=== PATIENT | male | born 1975 | race Caucasian/White ===

== ENCOUNTER 2020-05-10 11:50 | Emergency (ER) | payer OTHER ==
[~2020-05-10 11:50] MED LIST: ATARAX25 MG PO; KETOROLAC TROME10 MG PO; MEDROL 4MG DOSEP4 MG PO; ROBAXIN750 MG PO
[2020-05-10 14:50] LABS: BASOPHIL 0.7 % (0-2); EOSINOPHIL 1.8 % (0-5); HCT 44.8 % (42.0-52.0); HGB 14.4 g/dl (13.2-18.0); LYMPHOCYTE 28.8 % (15-48); MCH 29.8 pg (25.0-31.0); MCHC 32.1 g/dL (32.0-36.0); MCV 92.6 fL (78.0-100.0); MONOCYTE 8.7 % (0-12); MPV 9.6 fL (6.0-9.5); NEUTROPHIL 59.7 % (41-80); NRBC 0; PLT 238 K/uL (150-400); RBC 4.84 M/uL (4.70-6.00); RDW 13.4 % (11.5-14.0); WBC 7.4 K/uL (4.0-10.5)
[2020-05-10 16:03] LABS: BUN/CREAT RATIO (CALC) 15.2 RATIO; CREATININE 0.99 mg/dL (0.67-1.17); POTASSIUM 3.5 mmol/L (3.5-5.1)
[2020-05-10] MEDS ORDERED: MEDROL 4MG DOSEP4 MG PO (17:08)
== END 2020-05-10 17:15 | disposition home or self-care (01) ==
LOC: FER 11:50
PROVIDERS: Nurse Practitioner Family
DX: R20.2 Paresthesia of skin (principal); R29.700 NIHSS score 0
CPT/HCPCS: 36415; 70450; 71045; 80048; 84484; 85025; 93005

== ENCOUNTER 2021-03-22 22:07 | Emergency (ER) | payer OTHER ==
[2021-03-22 23:34] LABS: BASOPHIL 0.3 % (0-2); EOSINOPHIL 0.8 % (0-5); HCT 42.4 % (42.0-52.0); HGB 14.2 g/dl (13.2-18.0); LYMPHOCYTE 10.4 % (15-48); MCH 30.5 pg (25.0-31.0); MCHC 33.5 g/dL (32.0-36.0); MONOCYTE 10.5 % (0-12); MPV 9.5 fL (6.0-9.5); NEUTROPHIL 77.7 % (41-80); NRBC 0; PLT 232 K/uL (150-400); RBC 4.66 M/uL (4.70-6.00); RDW 12.8 % (11.5-14.0); WBC 9.9 K/uL (4.0-10.5)
[2021-03-22 23:50] LABS: ALBUMIN 4.2 g/dL (3.4-5.0); BILIRUBIN - TOTAL 0.4 mg/dL (0.2-1.0); BUN/CREAT RATIO (CALC) 17.5 RATIO; CREATININE 1.14 mg/dL (0.67-1.17); GLOBULIN (CALCULATION) 3.4 g/dL; TOTAL PROTEIN 7.6 g/dL (6.4-8.2)
[2021-03-23] MEDS ORDERED: CYCLOBENZAPRINE10 MG PO (00:47)
[2021-03-23] MEDS ORDERED: MEDROL 4MG DOSEP4 MG PO (00:47)
[2021-03-23] MEDS ORDERED: NORCO 5-325 TA1 EACH PO (00:47)
[2021-03-23 00:54] LABS: BILIRUBIN NEGATIVE (NEGATIVE); BLOOD TRACE-INTACT Ery/uL (NEGATIVE); CLARITY CLEAR (CLEAR); COLOR YELLOW (YELLOW); GLUCOSE (U) NORMAL (NORMAL); LEUKOCYTES NEGATIVE Leu/uL (NEGATIVE); NITRITE NEGATIVE (NEGATIVE); PROTEIN NEGATIVE (NEGATIVE); SPECIFIC GRAVITY >=1.030 (1.001-1.030); UROBILINOGEN 0.2 mg/dL (0.2-1.0)
[2021-03-23 00:58] LABS: SQUAMOUS EPITHELIAL CELLS RARE; URINARY RBC RARE; URINARY WBC RARE
== END 2021-03-23 00:59 | disposition home or self-care (01) ==
LOC: FER 22:07
PROVIDERS: Internal Medicine
DX: M54.41 Lumbago with sciatica, right side (principal); Z88.6 Allergy status to analgesic agent
CPT/HCPCS: 36415; 72128; 72131; 80053; 81001; 83690; 85025; 96372; J1170; J2930

== ENCOUNTER 2021-03-26 11:17 | Emergency (ER) | payer OTHER ==
[~2021-03-26] VITALS: Ht 188 cm; Wt 113.4 kg
[~2021-03-26 11:17] MED LIST changes: +CYCLOBENZAPRINE10 MG PO; +NORCO 5-325 TA1 EACH PO
[2021-03-26 12:08] LABS: BASOPHIL 0.3 % (0-2); EOSINOPHIL 0.3 % (0-5); HGB 12.8 g/dl (13.2-18.0); LYMPHOCYTE 8.6 % (15-48); MCH 30.2 pg (25.0-31.0); MCHC 32.8 g/dL (32.0-36.0); MONOCYTE 13.3 % (0-12); MPV 9.9 fL (6.0-9.5); NEUTROPHIL 76.9 % (41-80); NRBC 0; PLT 188 K/uL (150-400); RBC 4.24 M/uL (4.70-6.00); RDW 13.2 % (11.5-14.0); WBC 8.7 K/uL (4.0-10.5)
[2021-03-26 12:12] LABS: BILIRUBIN NEGATIVE (NEGATIVE); BLOOD 3+ Ery/uL (NEGATIVE); CLARITY CLEAR (CLEAR); COLOR YELLOW (YELLOW); GLUCOSE (U) NORMAL (NORMAL); LEUKOCYTES NEGATIVE Leu/uL (NEGATIVE); NITRITE POSITIVE (NEGATIVE); PROTEIN 2+ mg/dL (NEGATIVE); SPECIFIC GRAVITY >=1.030 (1.001-1.030)
[2021-03-26 12:20] LABS: BILIRUBIN - TOTAL 0.6 mg/dL (0.2-1.0); BUN/CREAT RATIO (CALC) 18.5 RATIO; CREATININE 0.92 mg/dL (0.67-1.17); GLOBULIN (CALCULATION) 4.6 g/dL; POTASSIUM 3.2 mmol/L (3.5-5.1); TOTAL PROTEIN 7.6 g/dL (6.4-8.2)
[2021-03-26 12:22] LABS: BACTERIA 3+
[2021-03-26 17:19] LABS: AMPHETAMINES NEGATIVE (NEGATIVE); BARBITURATES NEGATIVE (NEGATIVE); ECSTASY (MDMA) NEGATIVE (NEGATIVE); MARIJUANA (THC) NEGATIVE (NEGATIVE); METHADONE NEGATIVE (NEGATIVE); OPIATES POSITIVE (NEGATIVE); OXYCODONE NEGATIVE (NEGATIVE)
[2021-03-26 17:55] LABS: CORONAVIRUS 2019 SARS-COV-2 NEGATIVE (NEGATIVE); INFLUENZA A NAA NEGATIVE (NEGATIVE)
== END 2021-03-26 22:00 | disposition other institution (70) ==
LOC: FER 11:17
PROVIDERS: Emergency Medicine; Physician Assistant
DX: N39.0 Urinary tract infection, site not specified (principal); M54.9 Dorsalgia, unspecified; Z20.822 Contact with and (suspected) exposure to COVID-19; Z88.6 Allergy status to analgesic agent
CPT/HCPCS: 36415; 80053; 80305; 81001; 84100; 85025; 86140; J0696; J1170; J2270; J2405; J3010; J3370; J7030; J7050; Q9967; U0002

== ENCOUNTER 2022-01-10 02:50 | Emergency (ER) | payer OTHER ==
[~2022-01-10 02:50] MED LIST changes: +BACTRIM DS TAB1 EACH PO
[2022-01-10 07:38] LABS: BASOPHIL 0.8 % (0-2); EOSINOPHIL 0.6 % (0-5); HCT 38.9 % (42.0-52.0); HGB 12.8 g/dl (13.2-18.0); LYMPHOCYTE 9.9 % (15-48); MCH 29.7 pg (25.0-31.0); MCHC 32.9 g/dL (32.0-36.0); MCV 90.3 fL (78.0-100.0); MONOCYTE 5.4 % (0-12); MPV 9.4 fL (6.0-9.5); NEUTROPHIL 82.9 % (41-80); NRBC 0; PLT 179 K/uL (150-400); RBC 4.31 M/uL (4.70-6.00); RDW 13.1 % (11.5-14.0); WBC 5.2 K/uL (4.0-10.5)
[2022-01-10 07:43] LABS: BILIRUBIN NEGATIVE (NEGATIVE); BLOOD 3+ Ery/uL (NEGATIVE); CLARITY SLIGHTLY HAZY (CLEAR); COLOR YELLOW (YELLOW); GLUCOSE (U) NORMAL (NORMAL); LEUKOCYTES 3+ Leu/uL (NEGATIVE); NITRITE NEGATIVE (NEGATIVE); PROTEIN TRACE (LOW) mg/dL (NEGATIVE); UROBILINOGEN 0.2 mg/dL (0.2-1.0)
[2022-01-10 07:44] LABS: BACTERIA 3+; RENAL EPITHELIAL CELLS RARE; SQUAMOUS EPITHELIAL CELLS RARE; URINARY WBC 20-50
== END 2022-01-10 06:10 | disposition home or self-care (01) ==
LOC: FER 02:50
PROVIDERS: Emergency Medicine
DX: N39.0 Urinary tract infection, site not specified (principal); R31.9 Hematuria, unspecified; Z88.6 Allergy status to analgesic agent; Z88.1 Allergy status to other antibiotic agents
CPT/HCPCS: 36415; 81001; 83605; 85025; 99283; J0696; J7030